=== PATIENT | female | born 1995 | race Caucasian/White ===

== ENCOUNTER 2022-05-05 16:54 | Inpatient (IN) | payer MEDICAID, SELFPAY ==
[2022-05-05] VITALS (44 sets, daily range): BP systolic 93–156; BP diastolic 50–94; PULSE 65–200; RESP 16–17; TEMP 36.8–36.9; O2SAT 90–100; BMI 37.5
[2022-05-05] MEDS: dextrose 5%-lactated ringers 1,000 ML 125 ML IV (16:16)
[2022-05-05] MEDS: ampicillin 2,000 MG in sodium chloride 0.9% (plus) 50 ML 100 MG IV (16:16)
[2022-05-05 16:23] LABS: Basophils % 0.2 %; Eosinophils # 0.1 10^3/uL (0.0-0.8); Eosinophils % 0.6 %; Hemoglobin 11.6 g/dL (11.5-15.3); Lymphocytes # 1.6 10^3/uL (0.8-4.8); Lymphocytes % 14.9 %; Mean Corpuscular HGB Conc 32.2 g/dL (30.0-36.0); Mean Corpuscular Hemoglobin 28.2 pg (28.0-34.0); Mean Corpuscular Volume 87.4 fl (81-99); Monocytes # 0.7 10^3/uL (0.2-0.9); Monocytes % 5.9 %; Neutrophils # 8.56 10^3/uL (1.8-7.7); Neutrophils % 77.9 %; Nucleated Red Blood Cells % 0 %; Platelet Count 227 10^3/cmm (130-400); Red Blood Count 4.12 10^6/uL (4.1-5.3); Red Cell Distribution Width 12.6 % (12.1-15.1)
[2022-05-05] MEDS: lactated ringers 1,000 ML 999 ML IV ×2 (16:40→17:35)
--- NOTE | 2022-05-05 17:19 | ANES.PREANE2 ---
Pre-Anesthetic Assessment Height/Weight: Height 1.7 m Weight 108.862 kg Temp Pulse Resp BP O2 Del Method 98.3 F 91 17 128/67 05/05/22 16:00 05/05/22 16:00 05/05/22 16:00 05/05/22 16:00 05/05/22 17:08 Epidural Familial anesthetic complications: None Was Beta Velvet taken within 24 hours: N/A Was Clonidine taken within 24 hours: N/A Last Intake: 15:00 Social No alcohol and No tobacco Exam alert, oriented x 3, clear to auscultation bilaterally and regular rate & rhythm Airway Submandibular: within normal limits Cervical ROM: within normal limits Mallampati: Class II Dentition: full History/ROS No significant history except as noted and No significant complaints Pulmonary None reported CV/HEM None reported None reported Hepatic None reported GI Gastroesophageal Reflux Disease Metabolic None reported Musc/skel None reported Neuropsych None reported Anesthetic Plan ASA status: 2 Anesthesia: Anesthesia Evaluation, General and Regional (specify below) Risk of > 500 ml blood loss (7ml/kg in children): No Medications/Allergies Current Medications Generic Name Dose Route Start Last Admin Trade Name Freq PRN Reason Stop Dose Admin Dextrose/Lactated Ringer's 1,000 mls @ 125 mls/hr 05/05/22 16:00 05/05/22 16:16 Dextrose 5%-Lactated Ringers IV 125 mls/hr .Q8H BRII Administration Lactated Ringer's 1,000 mls @ 999 mls/hr 05/05/22 16:18 05/05/22 16:40 Lactated Ringers IV 999 mls/hr .Q1H1M PRN Administration See label comments PFSH Anesthesia Female Reproductive History : 2 Data Anesthesia 05/05/22 16:05 Short CBC 05/05/22 Range/Units 16:05 WBC 11.0 H (4.0-10.0) 10^3/uL Hgb 11.6 (11.5-15.3) g/dL Hct 36.0 L (37.0-47.0) % MCV 87.4 (81-99) fl Plt Count 227 (130-400) 10^3/cmm Neut % (Auto) 77.9 % Neut # (Auto) 8.56 H (1.8-7.7) 10^3/uL Cardiac Studies: No Data to Display
--- NOTE | 2022-05-05 17:53 | ANES.PROC ---
Anesthesia Procedures Procedure/Date: 05/05/22 Epidural: Time Out Performed: Yes Consents Signed: Procedure Consent and NPO Consent Consent: requested by attending/covering physician, from patient, risks and benefits reviewed and patient agrees to proceed Lumbar Level: L3-L4 Epidural position: sitting Epidural procedure: sterile prep of area, 1% lidocaine to numb the area, neg for paresthesia, test dose given, 1.5% xylocaine 1:200k epi (3mL/2mL), 0.2% Ropivacaine bolus ml (5), placed PCEA, no systemic response, sterile dressing applied and 0.2% Ropiavacaine @ mls/hr (13) Additional Comments: BOBY at 8cm, catheter placed at 13cm
[2022-05-05] MEDS: ampicillin 1,000 MG in sodium chloride 0.9% (plus) 50 ML 100 MG IV (20:44)
[2022-05-06] VITALS (28 sets, daily range): BP systolic 101–136; BP diastolic 52–72; PULSE 64–93; RESP 16–18; TEMP 36.5–36.8; O2SAT 98
[2022-05-06] MEDS: ampicillin 1,000 MG in sodium chloride 0.9% (plus) 50 ML 100 MG IV ×2 (00:23→05:33)
[2022-05-06] MEDS: dextrose 5%-lactated ringers 1,000 ML 125 ML IV (00:29)
[2022-05-06] MEDS: oxytocin 30 UNIT/500 ML BAG IV (02:40)
--- NOTE | 2022-05-06 07:50 | PM.OPHPUD ---
Labor & Delivery H&P Update Date of Procedure: May 06, 2022 Date H&P Performed: 05/02/22 Changes to previous documentation: Spontaneous rupture of membranes Admission Diagnosis: 26-year-old 2 para 1-0-0-1 at 38 weeks estimated gestational age presenting with spontaneous rupture of membranes Planned procedure: Spontaneous vaginal delivery Other information: The patient has had a relatively unremarkable . There have been no significant complications. Her labs are as follows her blood type was B- her antibody screen was negative. She was GBS positive. She is rubella immune. She passed her glucose screen. The remainder of her infectious disease profile was within normal limits.
--- NOTE | 2022-05-06 07:53 | P.PCNOB_ITS ---
Delivery Note: Date of delivery: May 06, 2022 Pre-delivery diagnoses: 26-year-old 2 para 1-0-0-1 at 38 weeks estimated gestational age presenting with spontaneous rupture of membranes Post-delivery diagnoses: Status post spontaneous vaginal delivery Procedure: Spontaneous vaginal delivery Delivering Physician: Samm Meek Estimated blood loss (mL): 150 Pre-Delivery Course: The patient presented to the hospital complaining of spontaneous rupture of membranes. She was checked and found to have a moist vaginal vault and was found to be nitrazine positive. She is admitted to the hospital where she was given an epidural. Pitocin was then used to augment her labor. She had spontaneous rupture of membranes and progressed to complete. Delivery: DELIVERY: The patient progressed to complete without difficulty. She delivered a male with a weight of 7 pounds 9 ounces with Apgars of 9, 10. The baby was delivered from the ALENA position and placed on the mother's abdomen. The cord was then clamped and cut. There was a nuchal cord x1 which was reduced before delivery of the body. There was no meconium. The placenta and 3 vessel cord were delivered intact shortly thereafter. The perineum and vaginal vault were carefully examined. A small posterior midline vaginal laceration was noted which was not bleeding did not require repair. Both the mother and the baby were in stable condition. Post-Delivery Status: Good Coding Level of Care Code Acute Journeyman Plumber for Chg Courtney
[2022-05-06] MEDS: docusate sodium 100 mg Capsule PO ×2 (10:08→18:34)
[2022-05-06] MEDS: ibuprofen 800 mg tablet PO ×3 (10:08→22:12)
[2022-05-06] MEDS: prenatal vitamin Capsule 1 CAP PO (10:08)
[2022-05-06] MEDS: benzocaine-menthol 78 gm Canister 1 SPRAY TOPICAL (10:09)
[2022-05-06] MEDS: lanolin oint 7 gm 1 APPLIC TOPICAL (10:09)
[2022-05-06] MEDS: HYDROcodone-acetaminophen 5-325 mg Tablet PO ×2 (11:25→18:34)
--- NOTE | 2022-05-06 11:59 | PC.NURSE ---
Pt up to bathroom without difficulty. Void 450mL. Pt then into shower for damian care. Gown, underwear and pad provided. Dermoplast provided. Pt then ambulated around room while bed linens changed. Pt then into bed and going to eat lunch. States she feels much better at this time.
--- NOTE | 2022-05-06 15:37 | PC.NURSE ---
pt ambulated to OB-7. Oriented to room/call light. Proud parent pack and feeding log gone over. Shower supplies provided.
[2022-05-06 20:24] LABS: Hematocrit 32.3 % (37.0-47.0); Hemoglobin 10.6 g/dL (11.5-15.3); Mean Corpuscular HGB Conc 32.8 g/dL (30.0-36.0); Mean Corpuscular Volume 88.3 fl (81-99); Mean Platelet Volume 11.3 fL (7.4-10.4); Platelet Count 187 10^3/cmm (130-400); Red Blood Count 3.66 10^6/uL (4.1-5.3); Red Cell Distribution Width 12.7 % (12.1-15.1); White Blood Count 12.4 10^3/uL (4.0-10.0)
[2022-05-07] MEDS: HYDROcodone-acetaminophen 5-325 mg Tablet PO ×2 (01:37→10:51)
[2022-05-07 04:05] VITALS: BP 124/78; PULSE 76; RESP 16; TEMP 36.5
--- NOTE | 2022-05-07 06:50 | PM.OBGYDC ---
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 She received an epidural. She progressed to complete and had an unremarkable delivery of a healthy appearing infant. Her course was also been relatively unremarkable. She been breast-feeding well. Her pain has been somewhat difficult to control, but she is doing much better this morning. And she would like to go home. Information Peripartum Data: Delivery Method: Vaginal Physical Exam Narrative: The patient is alert. She appears comfortable. Her heart has a regular rate and rhythm with no murmurs appreciated. Lungs are clear to auscultation bilaterally. Her fundus is firm and below the umbilicus. Urinary Catheter Management: Mckeon: Cath Placed During This Visit: yes, but has since been removed by the nurse Reason for Continuing Indwelling Catheter: Decision to DC Catheter Urinary Catheter Date of Insertion: 05/05/22 Urinary Catheter Time of Insertion: 18:33 Date Urinary Catheter Removed: 05/06/22 Time Urinary Catheter Discontinued: 07:15 Discharge Data Studies Completed and Pending Pending at discharge Category Date Time Status Antibody Identification Routine Lab 05/05/22 16:05 Results Complete Crossmatch Routine Lab 05/05/22 16:05 Results Rho D Immune Globulin Routine Lab 05/05/22 16:05 Results Type and Screen Routine Lab 05/05/22 16:05 Results Laboratory Results WBC 12.4 10^3/uL (4.0-10.0) H 05/06/22 20:00 RBC 3.66 10^6/uL (4.1-5.3) L 05/06/22 20:00 Hgb 10.6 g/dL (11.5-15.3) L 05/06/22 20:00 Hct 32.3 % (37.0-47.0) L 05/06/22 20:00 MCV 88.3 fl (81-99) 05/06/22 20:00 MCH 29.0 pg (28.0-34.0) 05/06/22 20:00 MCHC 32.8 g/dL (30.0-36.0) 05/06/22 20:00 RDW 12.7 % (12.1-15.1) 05/06/22 20:00 Plt Count 187 10^3/cmm (130-400) 05/06/22 20:00 MPV 11.3 fL (7.4-10.4) H 05/06/22 20:00 Neut % (Auto) 77.9 % 05/05/22 16:05 Lymph % (Auto) 14.9 % 05/05/22 16:05 [place] % (Auto) 5.9 % 05/05/22 16:05 Eos % (Auto) 0.6 % 05/05/22 16:05 Baso % (Auto) 0.2 % 05/05/22 16:05 Neut # (Auto) 8.56 10^3/uL (1.8-7.7) H 05/05/22 16:05 Lymph # (Auto) 1.6 10^3/uL (0.8-4.8) 05/05/22 16:05 [place] # (Auto) 0.7 10^3/uL (0.2-0.9) 05/05/22 16:05 Eos # (Auto) 0.1 10^3/uL (0.0-0.8) 05/05/22 16:05 Baso # (Auto) 0.0 10^3/uL (0.0-0.1) 05/05/22 16:05 Nucleated RBC % (auto) 0 % 05/05/22 16:05 Nucleated RBCs # 0.0 /100WBC 05/05/22 16:05 Blood Type B Negative 05/05/22 16:05 Rho(D) Type Negative 05/05/22 16:05 Antibody Screen Positive 05/05/22 16:05 Antibody Identification Anti-D 05/05/22 16:05 Screen Cancelled 05/05/22 16:05 Vitals Last Vital Signs Temp 97.7 F 05/07/22 04:05 Pulse 76 05/07/22 04:05 Resp 16 05/07/22 04:05 BP 124/78 05/07/22 04:05 Pulse Ox 98 05/06/22 21:44 O2 Del Method 05/07/22 04:05 Discharge Plan Discharge Patient Disposition: Home Condition: Stable Prescriptions: New ibuprofen 800 mg Tablet 800 mg PO TID Qty: 45 0RF -U 106.5-1 mg Capsule 1 cap PO DAILY Qty: 100 0RF Discharge Orders: Discharge Order (Routine); Ordered 05/07/22 Ordered By: Samm Meek Referrals: Samm Meek MD [Physician] - 6 Weeks Discharge Diet: Usual diet Discharge Activity: Limit activity as instructed Patient Instructions: Opioid Safety Discharge Attestations 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
--- NOTE | 2022-05-07 08:00 | ANE.PACU2 ---
Inpatient post-anesthesia follow up: Airway intact: Yes Vital signs: Temperature 98.0 F Pulse Rate 80 Respiratory Rate 18 Blood Pressure 132/83 Pulse Oximetry 98 Oxygen Delivery Me thod Room Air Oxygen Flow Rate Fraction of Inspir ed Oxygen Hydration adequate: Yes Nausea and vomiting: No Pain level: 1 Mental status: Baseline
[2022-05-07] MEDS: docusate sodium 100 mg Capsule PO (09:27)
[2022-05-07] MEDS: prenatal vitamin Capsule 1 CAP PO (09:27)
[2022-05-07] MEDS: ibuprofen 800 mg tablet PO (09:27)
[2022-05-07 10:02] VITALS: BP 114/76; RESP 16; TEMP 36.7
[2022-05-07 10:53] VITALS: BP 132/83; PULSE 80; RESP 18
[2022-05-07 11:23] VITALS: BP 132/83; PULSE 80; RESP 18
== END 2022-05-07 11:20 | disposition home or self-care (01) | DRG 807 ==
LOC: OPOB 05-07 07:20 → OBGYN 05-07 07:20
PROVIDERS: Admitting Provider Family Medicine; PCP Family Medicine; Visit Provider Family Medicine
DX: O99.824 Streptococcus B carrier state complicating childbirth (principal); Z37.0 Single live birth; O69.81X0 Labor and delivery complicated by cord around neck, without compression, not applicable or unspecified; Z3A.38 38 weeks gestation of pregnancy
CPT/HCPCS: 12345; 36415; 36430; 51702; 59025; 59409; 80503; 83986; 85025; 85027; 85460; 86850; 86870; 86900; 90384; 96372; 99211; J0290; J2590; J2795; J7120; J7121